=== PATIENT | male | born 1975 | race African-American/Black ===

== ENCOUNTER 2018-04-04 14:20 | Emergency (ER) | payer SELFPAY ==
[~2018-04-04] VITALS: Ht 188 cm; Wt 104.3 kg
[2018-04-04 14:54] VITALS: BP 148/91
[2018-04-04] MEDS ORDERED: Mylanta II UD 30ml ORAL ONE (15:00)
[2018-04-04] MEDS ORDERED: Lidocaine 2% Visc 15ml soln ORAL ONE (15:00)
[2018-04-04 15:30] LABS: EOSINOPHILS % (AUTO) 0.3 % (0.0-3.0); HEMATOCRIT 44.8 % (42.0-52.0); HEMOGLOBIN 15.4 G/DL (14.2-18.0); LYMPHOCYTES % (AUTO) 23.8 % (20.0-45.0); MEAN CORPUSCULAR VOLUME 77 FL (80-99); MONOCYTES % (AUTO) 6.2 % (1.0-10.0); NEUTROPHILS % (AUTO) 68.7 % (45.0-75.0); PLATELET COUNT 224 K/UL (150-450); RED BLOOD COUNT 5.81 M/UL (4.70-6.10); RED CELL DISTRIBUTION WIDTH 11.4 % (11.6-14.8); WHITE BLOOD COUNT 5.6 K/UL (4.8-10.8)
[2018-04-04 15:49] LABS: ANION GAP 7 mmol/L (5-15); BLOOD UREA NITROGEN 13 mg/dL (7-18); CALCIUM 9.3 MG/DL (8.5-10.1); CARBON DIOXIDE 28 MMOL/L (21-32); CHLORIDE 100 MMOL/L (98-107); CREATININE 1.2 MG/DL (0.55-1.30); POTASSIUM 3.9 MMOL/L (3.5-5.1); SODIUM 135 MMOL/L (136-145)
[2018-04-04 15:53] LABS: ALANINE AMINOTRANSFERASE 23 U/L (12-78); ALBUMIN 4.1 G/DL (3.4-5.0); ALBUMIN/GLOBULIN RATIO 0.9 (1.0-2.7); ALKALINE PHOSPHATASE 58 U/L (46-116); ASPARTATE AMINO TRANSFERASE 12 U/L (15-37); BILIRUBIN,TOTAL 0.6 MG/DL (0.2-1.0); CREATINE KINASE 163 U/L (26-308)
[2018-04-04] MEDS ORDERED: Ketorolac 30mg Inj IV ONE (16:00)
--- NOTE | 2018-04-04 16:32 | Emergency Room Report ---
History of Present Illness General Chief Complaint: Nausea, Vomiting, and Diarrhea Source: Patient Present Illness HPI This patient complains of epigastric pain, nausea and vomiting for the past 8 days. The patient states that for the past she he has had intermittent episodes that are similar, however, this is the first time the symptoms have been constant for the past 8 days. He states that the symptoms are intolerable. He is also had nausea and vomiting. He denies diarrhea. He denies chest pain or shortness of breath. He denies fever or chills. He does not associate the symptoms with meals. He denies any exertional component. He has no other complaints. Allergies: Coded Allergies: No Known Allergies (Unverified , 04/04/18) Patient History Past Medical History: see triage record Social History: Reports: drug use - THC; Denies: smoking, alcohol use Reviewed Nursing Documentation: PMH: Agreed; PSxH: Agreed Nursing Documentation-PM Past Medical History: No Stated History Review of Systems All Other Systems: negative except mentioned in HPI Physical Exam Vital Signs Date Time Temp Pulse Resp B/P (MAP) Pulse Ox O2 Delivery O2 Flow Rate FiO2 04/04/18 14:34 98.8 68 18 147/97 99 04/04/18 14:54 Room Air Sp02 EP Interpretation: reviewed, normal General Appearance: no apparent distress, alert, GCS 15, non-toxic Head: normocephalic, atraumatic Eyes: bilateral eye normal inspection, bilateral eye PERRL ENT: hearing grossly normal, normal pharynx, no angioedema, normal voice Neck: full range of motion, supple/symm/no masses Respiratory: chest non-tender, lungs clear, normal breath sounds, no respiratory distress, no retraction, no accessory muscle use, speaking full sentences Cardiovascular #1: regular rate, rhythm, no edema Gastrointestinal: normal bowel sounds, soft, non-distended, no guarding, no rebound, tenderness - TTP in the epigastrium and LUQ Rectal: deferred Musculoskeletal: back normal, gait/station normal, normal range of motion, non- tender Neurologic: alert, oriented x3, responsive, motor strength/tone normal, sensory intact, speech normal Psychiatric: judgement/insight normal, memory normal, mood/affect normal, no suicidal/homicidal ideation Skin: normal color, no rash, warm/dry, well hydrated Medical Decision Making Diagnostic Impression: Primary Impression: Gastritis Additional Impressions: Abdominal pain Nausea & vomiting ER Course This patient presented with epigastric pain. This pain was severe and so I did further assess this patient for cholelithiasis/cholecystitis. However, ultrasound of the right upper quadrant showed no evidence of this. There is also no evidence of hepatitis or pancreatitis. Likely the symptoms are gastritis. I obtained a CT of the abdomen and pelvis given the severity the patient's symptoms and this was unremarkable. There is no evidence of appendicitis. The patient's laboratory workup is noncontributory. The patient was given IV Pepcid and a GI cocktail. I will place the patient on a GI regimen. Patient instructed to follow-up closely with his primary care physician. The patient's given return precautions and follow-up instructions. Please note that this Emergency Department Report was dictated using [employer] technology software, occasionally this can lead to erroneous entry secondary to interpretation by the dictation equipment. Laboratory Tests Test 04/04/18 15:11 04/04/18 16:00 White Blood Count 5.6 K/UL (4.8-10.8) Red Blood Count 5.81 M/UL (4.70-6.10) Hemoglobin 15.4 G/DL (14.2-18.0) Hematocrit 44.8 % (42.0-52.0) Mean Corpuscular Volume 77 FL (80-99) L Mean Corpuscular Hemoglobin 26.5 PG (27.0-31.0) L Mean Corpuscular Hemoglobin Concent 34.4 G/DL (32.0-36.0) Red Cell Distribution Width 11.4 % (11.6-14.8) L Platelet Count 224 K/UL (150-450) Mean Platelet Volume 9.8 FL (6.5-10.1) Neutrophils (%) (Auto) 68.7 % (45.0-75.0) Lymphocytes (%) (Auto) 23.8 % (20.0-45.0) Monocytes (%) (Auto) 6.2 % (1.0-10.0) Eosinophils (%) (Auto) 0.3 % (0.0-3.0) Basophils (%) (Auto) 1.0 % (0.0-2.0) Sodium Level 135 MMOL/L (136-145) L Potassium Level 3.9 MMOL/L (3.5-5.1) Chloride Level 100 MMOL/L (98-107) Carbon Dioxide Level 28 MMOL/L (21-32) Anion Gap 7 mmol/L (5-15) Blood Urea Nitrogen 13 mg/dL (7-18) Creatinine 1.2 MG/DL (0.55-1.30) Estimate Glomerular Filtration Rate > 60 mL/min (>60) Glucose Level 111 MG/DL (74-106) H Calcium Level 9.3 MG/DL (8.5-10.1) Total Bilirubin 0.6 MG/DL (0.2-1.0) Aspartate Amino Transferase (AST) 12 U/L (15-37) L Alanine Aminotransferase (ALT) 23 U/L (12-78) Alkaline Phosphatase 58 U/L (46-116) Total Creatine Kinase 163 U/L (26-308) Troponin I 0.006 ng/mL (0.000-0.056) Total Protein 8.5 G/DL (6.4-8.2) H Albumin 4.1 G/DL (3.4-5.0) Globulin 4.4 g/dL Albumin/Globulin Ratio 0.9 (1.0-2.7) L Lipase 102 U/L (73-393) Urine Color Madhuri Urine Appearance Clear Urine pH 6 (4.5-8.0) Urine Specific [place] 1.025 (1.005-1.035) Urine Protein 1+ (NEGATIVE) H Urine Glucose (UA) Negative (NEGATIVE) Urine Ketones 2+ (NEGATIVE) H Urine Blood Negative (NEGATIVE) Urine Nitrite Negative (NEGATIVE) Urine Bilirubin Negative (NEGATIVE) Urine Ictotest Pending Urine Urobilinogen Normal MG/DL (0.0-1.0) Urine Leukocyte Esterase 1+ (NEGATIVE) H Urine RBC Pending Urine WBC Pending Urine Squamous Epithelial Cells Pending Urine Bacteria Pending Urine Opiates Screen Pending Urine Barbiturates Screen Pending Phencyclidine (PCP) Screen Pending Urine Amphetamines Screen Pending Urine Benzodiazepines Screen Pending Urine Cocaine Screen Pending Urine Marijuana (THC) Screen Pending EKG Diagnostic Results Rate: normal Rhythm: NSR ST Segments: no acute changes Rhythm Strip Diag. Results EP Interpretation: yes Rate: 60's Rhythm: NSR, no PVC's, no ectopy CT/MRI/US Diagnostic Results CT/MRI/US Diagnostic Results : Imaging Test Ordered: US abdomen Impression Family liver. Normal gallbladder. CT abd/pelvis: No acute findings. See official report. Last Vital Signs Date Time Temp Pulse Resp B/P (MAP) Pulse Ox O2 Delivery O2 Flow Rate FiO2 04/04/18 14:54 98.2 65 13 148/91 100 Room Air Status: improved Disposition: HOME, SELF-CARE Condition: Improved Scripts No Active Prescriptions or Reported Meds Referrals: NOT CHOSEN IPA/MD,REFERRING (PCP) Esha Lopez DO Apr 04, 2018 16:32
[2018-04-04 16:36] LABS: APPEARANCE,URINE CLEAR; BILIRUBIN, URINE NEGATIVE (NEGATIVE); COLOR,URINE AMBER; GLUCOSE, URINE (UA) NEGATIVE (NEGATIVE); KETONES,URINE 2+ (NEGATIVE); LEUKOCYTE ESTERASE ,URINE 1+ (NEGATIVE); NITRITE,URINE NEGATIVE (NEGATIVE); PH,URINE 6 (4.5-8.0); PROTEIN,URINE 1+ (NEGATIVE); UROBILINOGEN,URINE NORMAL MG/DL (0.0-1.0)
[2018-04-04] MEDS ORDERED: Isovue-300 100ml vial INJ PRN (17:15)
[2018-04-04 17:22] VITALS: BP 132/79
[2018-04-04] MEDS ORDERED: Omnipaque-300 100ml vial INJ ONE (17:39)
[2018-04-04] MEDS ORDERED: PEPCID AC20 M2 PO (19:06)
[2018-04-04 19:18] VITALS: BP 122/75
--- NOTE | 2018-04-05 09:23 | Diagnostic Imaging Report ---
Clinical Indication: Epigastric pain, vomiting, nausea. A days Technique: No oral contrast utilized, per emergency room physician request IV administration nonionic contrast. Venous phase spiral acquisition obtained through the abdomen and pelvis. Multiplanar reconstructions were generated. Total dose length product 929 mGycm. CTDIvol(s) 16.82 mGy. Dose reduction achieved using automated exposure control Comparison: none Findings: The appendix is normal. No evidence of diverticulosis or diverticulitis. There is a small broad-based umbilical hernia with a knuckle of small bowel protruding slightly into it. No evidence of obstruction or strangulation. Small amount of fluid is seen within the pelvis. The stomach demonstrates equivocal wall and mucosal fold thickening, probably an artifact of under distention. The duodenum is unremarkable. No free intraperitoneal gas demonstrated. The distal esophagus is unremarkable. The liver is somewhat hypoattenuating. No focal abnormality. The gallbladder, bile ducts, pancreas, spleen, adrenals, kidneys are unremarkable. No retroperitoneal or mesenteric mass or adenopathy. No pelvic mass or adenopathy. The included lung bases demonstrate some posterior dependent atelectatic changes, are otherwise unremarkable. The bones are unremarkable. Impression: No acute process Trace free pelvic fluid, of uncertain significance but not physiologic in a male patient Broad-based small umbilical hernia Mild fatty liver This agrees with the preliminary report provided overnight by Dr. Patel, with minor variation The CT scanner at [facility] is accredited by the [employer] and the scans are performed using protocols designed to limit radiation exposure to as low as reasonably achievable to attain images of sufficient resolution adequate for diagnostic evaluation.
--- NOTE | 2018-04-05 10:06 | Diagnostic Imaging Report ---
Indication: Abdominal pain Technique: Song-scale and duplex images of the upper abdomen were obtained Comparison: none Findings: Gallbladder is unremarkable, without stones, wall thickening, nor pericholecystic fluid. Sonographic Palencia's sign is negative. Common bile duct measures for mm in diameter. No intrahepatic biliary ductal dilatation. Liver demonstrates diffusely increased echogenicity, consistent with diffuse hepatocellular disease, most likely fatty change. Portal vein and hepatic veins are patent. Pancreas is unremarkable. Spleen is unremarkable. Left kidney measures 12.9 cm in length. Right kidney measures 11.4 cm length. Both kidneys demonstrate normal echogenicity. There is no hydronephrosis. No focal abnormality . Non-aneurysmal abdominal aorta . Impression: Liver demonstrates diffusely increased echogenicity, consistent with diffuse hepatocellular disease, most likely fatty change. This is confirmed on subsequent CT scan Negative for gallstones, dilated ducts, or other acute or significant abnormality
--- NOTE | 2018-04-05 19:42 | Cardiology Report ---
APPROVED REPORT EKG Measurement Heart [id number] MD [id number] Normal sinus rhythm Possible Left atrial enlargement Borderline ECG
== END 2018-04-04 19:20 | disposition home or self-care (01) ==
LOC: EMR 15:26
DX: K29.70 Gastritis, unspecified, without bleeding (principal); K76.0 Fatty (change of) liver, not elsewhere classified; F12.90 Cannabis use, unspecified, uncomplicated
CPT/HCPCS: 36415; 74177; 76700; 80053; 80307; 81003; 82550; 83690; 84484; 85025; 93005; 96361; 96374; 96375; 99284; J1885; J2405; Q9965; Q9967; S0028